=== PATIENT | female | born 1985 | race Caucasian/White ===

== ENCOUNTER 2020-07-25 21:44 | Emergency (ER) | payer OTHER ==
[~2020-07-25] VITALS: Ht 170.2 cm; Wt 114.8 kg
[2020-07-25 21:56] VITALS: Ht 170.2 cm; Wt 114.8 kg
[2020-07-26 01:44] VITALS: BP 126/77
== END 2020-07-26 01:41 | disposition home or self-care (01) ==
LOC: ED 21:44
DX: L60.0 Ingrowing nail (principal)
CPT/HCPCS: J2001